=== PATIENT | male | born 1960 | race Caucasian/White ===

== ENCOUNTER 2016-05-03 04:50 | Inpatient (IN) | payer MEDICARE ==
[2016-05-03] VITALS (23 sets, daily range): BP systolic 106–205; BP diastolic 71–118; PULSE 72–129; RESP 17–20; TEMP 97.9–99.3; O2SAT 93–99
[~2016-05-03] VITALS: Ht 177.8 cm; Wt 90.1 kg
[~2016-05-03 04:50] MED LIST: ALPR.5 PO; DIGO0.12 PO; METO25TA6 PO; PROT40TA PO; TEMA30CA PO; VENL25TA PO
[2016-05-03] MEDS ORDERED: AMIO0.1T PO (05:12)
[2016-05-03] MEDS ORDERED: SODIUM CHLORIDE 0.9% FLUSH 5 ML FLUSH IVF PRN (05:15)
[2016-05-03] MEDS ORDERED: DILTIAZEM HCL 25 MG/5 ML VIAL IV ONE ×2 (05:15)
[2016-05-03] MEDS ORDERED: PROCHLORPERAZINE INJ 10 MG/2 ML VIAL IVS ONE (05:30)
--- NOTE | 2016-05-03 05:47 | RADRPT ---
EXAM DATE/TIME: 05/03/2016 05:26 [place] COMPARISON: CHEST SINGLE AP, May 21, 2015, 3:55. INDICATIONS : Shortness of breath. MEDICAL HISTORY : None. SURGICAL HISTORY : None. ENCOUNTER: Initial ACUITY: 1 day PAIN SCORE: 0/10 LOCATION: Bilateral chest FINDINGS: A single view of the chest demonstrates the lungs to be symmetrically aerated without evidence of mas s, infiltrate or effusion. The cardiomediastinal contours are unremarkable. Osseous structures are intact. CONCLUSION: No acute disease. No significant change has occurred. Gianni Carroll MD on May 03, 2016 at 5:45 Board Certified Radiologist. This report was verified electronically.
[2016-05-03 05:50] LABS: AUTOMATED NEUTROPHIL # 14.2 TH/MM3 (1.8-7.7); BASOPHIL % 0.3 % (0.0-2.0); HEMATOCRIT 52.6 % (39.0-51.0); HEMO FLAGS DIFF FINAL; LYMPH % 7.3 % (9.0-44.0); LYMPHOCYTE # 1.1 TH/MM3 (1.0-4.8); MEAN CELL VOLUME 90.3 FL (80.0-100.0); MEAN CORPUSCULAR HEMOGLOBIN 31.8 PG (27.0-34.0); MEAN CORPUSCULAR HGB CONC 35.3 % (32.0-36.0); MONO % 1.4 % (0.0-8.0); PLATELET COUNT 370 TH/MM3 (150-450); RED BLOOD COUNT 5.83 MIL/MM3 (4.50-5.90); RED CELL DISTRIBUTION WIDTH 12.9 % (11.6-17.2); WHITE BLOOD COUNT 15.6 TH/MM3 (4.0-11.0)
[2016-05-03 06:08] LABS: APTT (PATIENT) 25.4 SEC (24.3-30.1); PROTHROMBIN TIME - PATIENT 11.6 SEC (9.8-11.6)
[2016-05-03 06:16] LABS: ANION GAP 18 MEQ/L (5-15); BLOOD UREA NITROGEN 10 MG/DL (7-18); CHLORIDE 101 MEQ/L (98-107); GLOMERULAR FILTRATION RATE 73 ML/MIN (>89); MAGNESIUM 2.3 MG/DL (1.5-2.5); POTASSIUM 4.4 MEQ/L (3.5-5.1); SODIUM (NA) 137 MEQ/L (136-145)
[2016-05-03 06:19] LABS: CREATINE KINASE 107 U/L (39-308)
[2016-05-03] MEDS ORDERED: LORazepam 2 MG/ML VIAL IV PUSH ONE (06:30)
[2016-05-03 06:32] LABS: CKMB 0.9 NG/ML (0.5-3.6)
--- NOTE | 2016-05-03 07:29 | PD ---
HPI Chief Complaint: General Weakness Time Seen by Provider: 05:08 Travel History International Travel<30 days: No Contact w/Intl Traveler<30days: No Traveled to known affect area: No History of Present Illness HPI Patient's 55-year-old male who arrives to the ER following a couple days of weakness and decreased appetite. He's had nausea for a few days. On route to the ER vomited several times in the ambulance. He complains of some generalized chest pain which he thinks is due to the vomiting episodes. For the last couple days at night sweats. He also complains of anxiety. He has a known history of atrial fibrillation and takes digoxin with amiodarone. He does not take anticoagulation due to gastric polyps colonic polyps. EMS notes diaphoresis on scene as well as a heart rate of 120. Blood pressure was 160/ 90. The patient also reports EMS that recently changed some of his medications however on my exam is less forthright. PFSH Past Medical History Hx Anticoagulant Therapy: Yes Arthritis: Yes Atrial Fibrillation: Yes Anxiety: Yes Depression: Yes Cancer: No Cardiac Catheterization: Yes Cardiomyopathy: Yes Cardiovascular Problems: Yes (A-FIB) Congestive Heart Failure: Yes Coronary Artery Disease: Yes Diabetes: No Diminished Hearing: No Endocrine: No Gastrointestinal Disorders: Yes (RECENT GI BLEED) GERD: Yes Gout: Yes Genitourinary: No Hepatitis: No Hypertension: Yes Immune Disorder: No Medical other: Yes (GOUT, HAD 2 UNITS OF PLASMA 06/01) Musculoskeletal: Yes (ARTHRITIS, "GOUTY ARTHRITIS") Neurologic: No Psychiatric: Yes (ANXIETY, DEPRESSION) Reproductive: No Respiratory: No Immunizations Current: Yes Thyroid Disease: No Tetanus Vaccination: Unknown Influenza Vaccination: No Past Surgical History Abdominal Surgery: No Body Medical Devices: 6 SCREWS Cardiac Surgery: No Ear Surgery: No Endocrine Surgery: No Eye Surgery: No Genitourinary Surgery: No Gynecologic Surgery: No Joint Replacement: No Oral Surgery: Yes (2 WISDOM TEETH PULLED) Pacemaker: No Thoracic Surgery: No Social History Alcohol Use: Yes (rarly) Tobacco Use: No Substance Use: No Allergies-Medications (Allergen,Severity, Reaction): Coded Allergies: No Known Allergies (Verified , 01/04/16) Reported Meds & Prescriptions Reported Meds & Active Scripts Active Reported Amiodarone (Amiodarone HCl) 100 Mg Tab Unknown Dose PO DAILY Xanax (Alprazolam) 0.5 Mg Tab 0.5 Mg PO Q6H PRN Temazepam 30 Mg Cap 30 Mg PO HS PRN Metoprolol Succinate ER 24 HR (Metoprolol Succinate) 25 Mg Tab 25 Mg PO BID Digoxin 0.125 Mg Tab 0.125 Mg PO DAILY Effexor (Venlafaxine HCl) 25 Mg Tab 25 Mg PO Q12H Protonix (Pantoprazole Sodium) 40 Mg Tab 40 Mg PO DAILY Review of Systems Except as stated in HPI: all other systems reviewed are Neg General / Constitutional: No: Fever Physical Exam Narrative GENERAL: 55 yo M, WNWD, NAD SKIN: Warm and dry. HEAD: Atraumatic. Normocephalic. EYES: Pupils equal and round. No scleral icterus. No injection or drainage. ENT: No nasal bleeding or discharge. Mucous membranes pink and moist. NECK: Trachea midline. No JVD. CARDIOVASCULAR: Irregular. Tachycardia. RESPIRATORY: No accessory muscle use. Clear to auscultation. Breath sounds equal bilaterally. GASTROINTESTINAL: Abdomen soft, non-tender, nondistended. Hepatic and splenic margins not palpable. MUSCULOSKELETAL: Extremities without clubbing, cyanosis, or edema. No obvious deformities. NEUROLOGICAL: Awake and alert. No obvious cranial nerve deficits. Motor grossly within normal limits. Five out of 5 muscle strength in the arms and legs. Normal speech. PSYCHIATRIC: Appropriate mood and affect; insight and judgment normal. Data Data Last Documented VS Vital Signs Date Time Temp Pulse Resp B/P Pulse Ox O2 Delivery O2 Flow Rate FiO2 05/03/16 07:01 112 18 113/76 97 Room Air 05/03/16 04:59 98.5 VS reviewed Orders Complete Blood Count With Diff (05/03/16 05:08) Basic Metabolic Panel (Bmp) (05/03/16 05:08) B-Type Natriuretic Peptide (05/03/16 05:08) Act Partial Throm Time (Ptt) (05/03/16 05:08) Prothrombin Time / Inr (Pt) (05/03/16 05:08) Magnesium (Mg) (05/03/16 05:08) Ckmb (Isoenzyme) Profile (05/03/16 05:08) Troponin I (05/03/16 05:08) Blood Culture (05/03/16 05:08) Iv Access Insert/Monitor (05/03/16 05:08) Electrocardiogram (05/03/16 05:08) Ecg Monitoring (05/03/16 05:08) Oximetry (05/03/16 05:08) Oxygen Administration (05/03/16 05:08) Chest, Single Ap (05/03/16 05:08) Sodium Chloride 0.9% Flush (Ns Flush) (05/03/16 05:15) Diltiazem Inj (Cardizem Inj) (05/03/16 05:15) Diltiazem Inj (Cardizem Inj) (05/03/16 05:15) Prochlorperazine Inj (Compazine Inj) (05/03/16 05:30) Lorazepam Inj (Ativan Inj) (05/03/16 06:30) CKMB (05/03/16 05:15) CKMB% (05/03/16 05:15) Diltiazem Inj (Cardizem Inj) (05/03/16 07:30) Digoxin (05/03/16 07:33) Sodium Chlorid 0.9% 500 Ml Inj (Ns 500 M (05/03/16 07:45) Admit Order (Ed Use Only) (05/03/16 07:33) Labs Laboratory Tests Test 05/03/16 05:15 White Blood Count 15.6 TH/MM3 Red Blood Count 5.83 MIL/MM3 Hemoglobin 18.6 GM/DL Hematocrit 52.6 % Mean Corpuscular Volume 90.3 FL Mean Corpuscular Hemoglobin 31.8 PG Mean Corpuscular Hemoglobin 35.3 % Concent Red Cell Distribution Width 12.9 % Platelet Count 370 TH/MM3 Mean Platelet Volume 9.4 FL Neutrophils (%) (Auto) 91.0 % Lymphocytes (%) (Auto) 7.3 % Monocytes (%) (Auto) 1.4 % Eosinophils (%) (Auto) 0.0 % Basophils (%) (Auto) 0.3 % Neutrophils # (Auto) 14.2 TH/MM3 Lymphocytes # (Auto) 1.1 TH/MM3 Monocytes # (Auto) 0.2 TH/MM3 Eosinophils # (Auto) 0.0 TH/MM3 Basophils # (Auto) 0.0 TH/MM3 CBC Comment DIFF FINAL Differential Comment Prothrombin Time 11.6 SEC Prothromb Time International 1.0 RATIO Ratio Activated Partial 25.4 SEC Thromboplast Time Sodium Level 137 MEQ/L Potassium Level 4.4 MEQ/L Chloride Level 101 MEQ/L Carbon Dioxide Level 18.0 MEQ/L Anion Gap 18 MEQ/L Blood Urea Nitrogen 10 MG/DL Creatinine 1.06 MG/DL Estimat Glomerular Filtration 73 ML/MIN Rate Random Glucose 111 MG/DL Calcium Level 9.2 MG/DL Magnesium Level 2.3 MG/DL Total Creatine Kinase 107 U/L Creatine Kinase MB 0.9 NG/ML Troponin I LESS THAN 0.02 NG/ML B-Type Natriuretic Peptide 171 PG/ML MDM Medical Decision Making Medical Screen Exam Complete: Yes Emergency Medical Condition: Yes Differential Diagnosis NSTEMI, unstable angina, coronary vasospasm, PE, PTX, aortic dissection, pericarditis, myocarditis, endocarditis, PNA, esophageal disease, aneurysm, musculoskeletal etiologies, anxiety, cocaine/sympathomimetic abuse Narrative Course CBC & BMP Diagram 05/03/16 05:15 Neutrophilia at 91% BNP 171 Troponin less than 0.02 Anion gap 18 EKG reveals a heart rate of 126 with atrial fibrillation left axis deviation and nonspecific ST changes Last 24 hours Impressions Chest X-Ray 05/03/16 0508 Signed Impressions: Service Date/Time: Tuesday, May 03, 2016 05:26 - CONCLUSION: No acute disease. No significant change has occurred. Gianni Carroll MD Anion gap is of unclear etiology as is leukocytosis. No response with 20 mg IV diltiazem. Diltiazem drip to be initiated. 500 cc normal saline bolus. Case discussed with Dr Victoria. Diagnosis Primary Impression: Atrial fibrillation with RVR Additional Impression: High anion gap metabolic acidosis Admitting Information Admitting Physician Requests: Admit Hernandez Story MD May 03, 2016 07:29
[2016-05-03] MEDS ORDERED: SODIUM CHLORID 0.9% 500 ML INJ 500 ML IV ONE (07:45)
[2016-05-03] MEDS ORDERED: SODIUM CHLOR 0.9% 1000 ML INJ 1,000 ML IV SCH (08:35)
[2016-05-03] MEDS ORDERED: SODIUM CHLORIDE 0.9% FLUSH 5 ML FLUSH FLUSH PRN (08:45)
[2016-05-03] MEDS ORDERED: NALOXONE HCL 0.4 MG/ML AMP IV PRN (08:45)
[2016-05-03] MEDS ORDERED: ALPRAZolam 0.5 MG TAB PO PRN (08:45)
[2016-05-03] MEDS ORDERED: SENNOSIDES 8.6 MG TAB PO PRN (08:45)
[2016-05-03] MEDS ORDERED: ONDANSETRON HCL 4 MG/2 ML VIAL IVP PRN (08:45)
[2016-05-03] MEDS ORDERED: ACETAMINOPHEN 325 MG TAB PO PRN ×2 (08:45)
[2016-05-03] MEDS ORDERED: TEMAZEPAM 15 MG CAP PO PRN (08:45)
[2016-05-03] MEDS: DILTIAZEM INJ 125 MG in SODIUM CHLORIDE 0.9% INJ 100 ML IV SCH (08:57)
[2016-05-03] MEDS ORDERED: SODIUM CHLORIDE 0.9% FLUSH 5 ML FLUSH FLUSH SCH (09:00)
[2016-05-03] MEDS: DOCUSATE SODIUM 100 MG CAP PO SCH ×2 (09:00→21:00)
--- NOTE | 2016-05-03 09:25 | EKG ---
Date Performed: 05/03/2016 Time Performed: 03:00:08 PTAGE: 55 years EKG: Probable atrial flutter with rapid response. MARKED LEFT AXIS DEVIATION POSSIBLE INFERIOR M YOCARDIAL INFARCTION ABNORMAL ECG Compared to prior electrocardiogram,Rate has increased. PREVIOUS TRACING : 05/21/2015 15.56 DOCTOR: Jeremy Colby Interpretating Date/Time 05/03/2016 09:24:20
[2016-05-03 09:33] LABS: INDIRECT BILIRUBIN 0.5 MG/DL (0.0-0.8); TOTAL BILIRUBIN ADULT 0.6 MG/DL (0.2-1.0)
[2016-05-03] MEDS: VENLAFAXINE HCL 25 MG TAB PO SCH ×2 (09:46→21:12)
[2016-05-03] MEDS: METOPROLOL SUCCINATE 25 MG EXTENDED RELEASE TAB PO SCH ×2 (09:46→21:12)
[2016-05-03] MEDS: PANTOPRAZOLE SOD 40 MG DELAYED RELEASE TAB PO SCH (09:46)
--- NOTE | 2016-05-03 11:24 | HHI.HP ---
HPI Service [facility] Hospitalists Primary Care Physician No Primary Care Physician Admission Diagnosis AFib RVR, Anion Gap Acidosis, N/V, Weakness Diagnoses: Travel History International Travel<30 Days: No Contact w/Intl Traveler <30 Da: No Traveled to Known Affected Are: No History of Present Illness The patient is a 55-year-old male with a past medical history of atrial fibrillation and CHF who presented to the hospital with nausea and vomiting and weakness. The patient states that on he developed nausea and vomiting and has pretty much been dry heaving since then. He denies any associated abdominal pain or diarrhea. He does not recall what he ate on Thursday prior to the onset of his illness. He denies any recent travel. He has been experiencing drenching sweats at night. He endorses dizziness. He has had shortness of breath associated with his heaving fits. He has not been tolerating a diet but currently feels as if he can eat as he does feel better overall. He says sometimes he has a pain on his right side that is currently not present. He says he has been feeling weak over the past few days and has not been walking to steadily. He noticed that his right pupil is slightly bigger than his left pupil and he is not sure that has always been the case. He denies any new vision changes or weakness/ numbness in any of his extremities. He denies any seizure activity. He says he recently saw his psychiatrist who he follows with for anxiety. Review of Systems Except as stated in HPI: all other systems reviewed are Neg Past Family Social History Past Medical History Tomlinson's esophagus GIB Hypertension CHF Atrial fibrillation COPD Gout Skull fracture when a baby Anxiety Allergies: Coded Allergies: No Known Allergies (Verified , 01/04/16) Active Ordered Medications Current Medications Medications (Trade) Dose Ordered Sig/Ricardo Route Start Time Stop Time Status Last Admin IV Flush 2 ml 2 ml UNSCH PRN IVF 05/03/16 05:15 (Cardizem Inj/NS Inj) 125 ml @ 0 mls/hr TITRATE IV 05/03/16 07:30 05/03/16 08:57 (Xanax) 0.5 mg Q6H PRN PO 05/03/16 08:45 (Lanoxin) 0.125 mg DAILY PO 05/04/16 09:00 (Toprol Xl) 25 mg BID PO 05/03/16 09:00 05/03/16 09:46 (Protonix) 40 mg DAILY PO 05/03/16 09:00 05/03/16 09:46 (Restoril) 30 mg HS PRN PO 05/03/16 08:45 (Effexor) 25 mg Q12H PO 05/03/16 09:00 05/03/16 09:46 (Tylenol) 650 mg Q4H PRN PO 05/03/16 08:45 (Zofran Inj) 4 mg Q6H PRN IVP 05/03/16 08:45 (Colace) 100 mg Q12HR PO 05/03/16 09:00 (Senokot) 17.2 mg Q12H PRN PO 05/03/16 08:45 (Tylenol) 650 mg Q6H PRN PO 05/03/16 08:45 (Roxicodone) 10 mg Q4H PRN PO 05/03/16 08:45 (Roxicodone) 5 mg Q4H PRN PO 05/03/16 08:45 Naloxone HCl 0.4 mg 0.4 mg UNSCH PRN IV 05/03/16 08:45 (NS 1000 ml Inj) 1,000 ml @ 100 mls/hr Q10H IV 05/04/16 08:35 05/05/16 04:34 (Lovenox Inj) 40 mg Q24H SQ 05/03/16 11:30 UNV (Cordarone) 200 mg DAILY PO 05/03/16 11:30 Family History Mental illness Social History The patient does not smoke. He says he has rare alcohol intake. He denies illicit drug use. Physical Exam Vital Signs Vital Signs Date Time Temp Pulse Resp B/P Pulse Ox O2 Delivery O2 Flow Rate FiO2 05/03/16 09:26 113 18 130/86 98 Room Air 05/03/16 07:01 112 18 113/76 97 Room Air 05/03/16 06:59 113 18 113/79 96 Room Air 05/03/16 05:25 111 20 160/98 98 Room Air 05/03/16 04:59 98.5 129 18 167/94 98 Physical Exam GENERAL: This is a well-nourished, well-developed patient, in no apparent distress. SKIN: No rashes, ecchymoses or lesions. Cool and dry. HEAD: Atraumatic. Normocephalic. No temporal or scalp tenderness. EYES: Pupils round and reactive, right pupil slightly greater than the left. Extraocular motions intact. No scleral icterus. No injection or drainage. ENT: Nose without bleeding, purulent drainage or septal hematoma. Throat without erythema, tonsillar hypertrophy or exudate. Uvula midline. Airway patent. NECK: Trachea midline. No JVD or lymphadenopathy. Supple, nontender, no meningeal signs. CARDIOVASCULAR: Irregularly irregular rhythm without murmurs, gallops, or rubs. RESPIRATORY: Clear to auscultation. Breath sounds equal bilaterally. No wheezes , rales, or rhonchi. GASTROINTESTINAL: Abdomen soft, non-tender, nondistended. No hepato-splenomegaly , or palpable masses. No guarding. MUSCULOSKELETAL: Extremities without clubbing, cyanosis, or edema. No joint tenderness, effusion, or edema noted. NEUROLOGICAL: Awake and alert. Cranial nerves II through XII intact. Motor and sensory grossly within normal limits. Five out of 5 muscle strength in all muscle groups. Normal speech. PSYCH: Mood and affect appropriate. Laboratory Laboratory Tests Test 05/03/16 05/03/16 05/03/16 05:15 08:00 09:10 White Blood Count 15.6 Red Blood Count 5.83 Hemoglobin 18.6 Hematocrit 52.6 Mean Corpuscular Volume 90.3 Mean Corpuscular Hemoglobin 31.8 Mean Corpuscular Hemoglobin 35.3 Concent Red Cell Distribution Width 12.9 Platelet Count 370 Mean Platelet Volume 9.4 Neutrophils (%) (Auto) 91.0 Lymphocytes (%) (Auto) 7.3 Monocytes (%) (Auto) 1.4 Eosinophils (%) (Auto) 0.0 Basophils (%) (Auto) 0.3 Neutrophils # (Auto) 14.2 Lymphocytes # (Auto) 1.1 Monocytes # (Auto) 0.2 Eosinophils # (Auto) 0.0 Basophils # (Auto) 0.0 CBC Comment DIFF FINAL Differential Comment Prothrombin Time 11.6 Prothromb Time International 1.0 Ratio Activated Partial 25.4 Thromboplast Time Sodium Level 137 Potassium Level 4.4 Chloride Level 101 Carbon Dioxide Level 18.0 Anion Gap 18 Blood Urea Nitrogen 10 Creatinine 1.06 Estimat Glomerular Filtration 73 Rate Random Glucose 111 Calcium Level 9.2 Magnesium Level 2.3 Total Creatine Kinase 107 Creatine Kinase MB 0.9 Troponin I LESS THAN 0.02 LESS THAN 0.02 B-Type Natriuretic Peptide 171 Total Bilirubin 0.6 Direct Bilirubin 0.1 Indirect Bilirubin 0.5 Aspartate Amino Transf 26 (AST/SGOT) Alanine Aminotransferase 35 (ALT/SGPT) Alkaline Phosphatase 91 Total Protein 9.0 Albumin 4.3 Lipase 97 Digoxin Level 0.2 Lactic Acid Level 2.4 Date/Time Procedure Status Source Growth 05/03/16 05:25 Aerobic Blood Culture Received Blood Peripheral Pending 05/03/16 05:25 Anaerobic Blood Culture Received Blood Peripheral Pending Result Diagram: 05/03/16 0515 05/03/16 0515 Imaging Last Impressions Chest X-Ray 05/03/16 0508 Signed Impressions: Service Date/Time: Tuesday, May 03, 2016 05:26 - CONCLUSION: No acute disease. No significant change has occurred. Gianni Carroll MD Assessment and Plan Assessment and Plan Metabolic acidosis/ Nausea The patient has an anion gap secondary to lactic acidosis with a lactate level of 2.4. The patient has been having bouts of nausea and vomiting over the past few days and has not been eating or drinking much. The patient does appear hemoconcentrated. His white count is elevated however there is no evidence of infection. Chest x-ray was normal. His symptoms have improved. Likely a viral illness. - IV fluids. - Follow BMP and lactic acid level. - Antiemetics as needed. - Encourage by mouth intake. - Check a UA c/s. - blood cultures x 2. NGTD. - PT evaluation for weakness. Atrial fibrillation with RVR Chronic condition. He received IV diltiazem in the emergency department. Heart rate is now controlled. The patient was previously on Coumadin however he had a GI bleed last year and that was discontinued. The patient says he takes a full strength aspirin daily. - Continue home medications including amiodarone, digoxin and Toprol-XL. - Monitor on telemetry. - Continue aspirin and consider resuming full anticoagulation. Anxiety The patient follows with psychiatrist as an outpatient. - Continue Effexor, Xanax and temazepam. - Outpatient follow-up with psychiatry. PPx: Lovenox. Code Status Full. Discussed Condition With Dr. Story, pt, nurse. Physician Certification 2 Midnight Certification Type: Admission for Inpatient Services Order for Inpatient Services The services are ordered in accordance with Medicare regulations or non- Medicare payer requirements, as applicable. In the case of services not specified as inpatient-only, they are appropriately provided as inpatient services in accordance with the 2-midnight benchmark. Estimated LOS (days): 2 days is the estimated time the patient will need to remain in the hospital, assuming treatment plan goals are met and no additional complications. Post-Hospital Plan: Home Arron Victoria DO May 03, 2016 11:24
[2016-05-03] MEDS: SODIUM CHLOR 0.9% 1000 ML INJ 1,000 ML IV SCH ×2 (11:34→21:14)
[2016-05-03] MEDS: ENOXAPARIN SODIUM 40 MG/0.4 ML SYRINGE SQ SCH (11:37)
[2016-05-03] MEDS: AMIODARONE 200 MG TAB PO SCH (11:37)
[2016-05-03] MEDS: ASPIRIN 325 MG TAB PO SCH (12:49)
[2016-05-03 17:17] LABS: ANION GAP 10 MEQ/L (5-15); BICARBONATE 23.2 MEQ/L (21.0-32.0); BLOOD UREA NITROGEN 14 MG/DL (7-18); CHLORIDE 105 MEQ/L (98-107); GLOMERULAR FILTRATION RATE 62 ML/MIN (>89); POTASSIUM 4.1 MEQ/L (3.5-5.1); SODIUM (NA) 138 MEQ/L (136-145)
[2016-05-03 17:48] LABS: BLOOD, URINE NEG (NEG); COMMENT (UR) CULT NOT INDICATED; CULTURE IF INDICATED CULT NOT INDICATED; GLUCOSE,URINE NEG (NEG); HYALINE CAST, URINE 2 /lpf (RARE); KETONE, URINE 80 mg/dL (NEG); MUCUS URINE FEW /lpf (OCC); NITRITE,URINE NEG (NEG); PH, URINE 5.5 (5.0-8.5); URINE COLOR YELLOW (YELLW/STRAW)
[2016-05-04] VITALS (16 sets, daily range): BP systolic 127–148; BP diastolic 77–101; PULSE 62–96; RESP 17–18; TEMP 98.6–99.1; O2SAT 95–98
[2016-05-04] MEDS: DILTIAZEM INJ 125 MG in SODIUM CHLORIDE 0.9% INJ 100 ML IV SCH (02:36)
[2016-05-04 07:39] LABS: AUTOMATED NEUTROPHIL # 5.1 TH/MM3 (1.8-7.7); BASOPHIL % 0.5 % (0.0-2.0); EOSINOPHIL # 0.1 TH/MM3 (0-0.4); EOSINOPHIL % 0.9 % (0.0-4.0); HEMATOCRIT 43.5 % (39.0-51.0); HEMO FLAGS DIFF FINAL; LYMPH % 30.4 % (9.0-44.0); LYMPHOCYTE # 2.5 TH/MM3 (1.0-4.8); MEAN CELL VOLUME 91.6 FL (80.0-100.0); MEAN CORPUSCULAR HEMOGLOBIN 31.6 PG (27.0-34.0); MEAN CORPUSCULAR HGB CONC 34.5 % (32.0-36.0); MONO % 6.7 % (0.0-8.0); NEUT % 61.5 % (16.0-70.0); PLATELET COUNT 236 TH/MM3 (150-450); RED BLOOD COUNT 4.75 MIL/MM3 (4.50-5.90); RED CELL DISTRIBUTION WIDTH 13.2 % (11.6-17.2); WHITE BLOOD COUNT 8.3 TH/MM3 (4.0-11.0)
[2016-05-04 08:27] LABS: ALKALINE PHOSPHATASE 58 U/L (45-117); ALT (GPT) 23 U/L (12-78); ANION GAP 10 MEQ/L (5-15); AST (GOT) 18 U/L (15-37); BICARBONATE 20.7 MEQ/L (21.0-32.0); BLOOD UREA NITROGEN 13 MG/DL (7-18); CHLORIDE 109 MEQ/L (98-107); GLOMERULAR FILTRATION RATE 75 ML/MIN (>89); SODIUM (NA) 140 MEQ/L (136-145); TOTAL BILIRUBIN ADULT 1.2 MG/DL (0.2-1.0)
[2016-05-04] MEDS ORDERED: DIGOXIN 0.125 MG TAB PO SCH (09:00)
[2016-05-04] MEDS: DOCUSATE SODIUM 100 MG CAP PO SCH (09:00)
[2016-05-04] MEDS ORDERED: ASPI325T PO (09:11)
--- NOTE | 2016-05-04 09:12 | HHI.DCPOC ---
Discharge Care Plan Diagnosis: (1) High anion gap metabolic acidosis (2) Atrial fibrillation with RVR Your Health Problems Are: Anxiety Appetite Changes Goals to Promote Your Health * To prevent worsening of your condition and complications * To maintain your health at the optimal level Directions to Meet Your Goals Take your medications as prescribed Follow your dietary instruction Follow activity as directed Keep your appointments as scheduled Take your immunizations and boosters as scheduled If your symptoms worsen call your PCP, if no PCP go to Urgent Care Center or Emergency Room Smoking is Dangerous to Your Health. Avoid second hand smoke Call the 24-hour hour crisis hotline for domestic abuse at Arron Victoria DO May 04, 2016 09:12
--- NOTE | 2016-05-04 09:22 | HHI.PR ---
Subjective Remarks The pt was resting in bed comfortably and wanted to go home. He said he has not had nausea for 24 hours. He had no acute complaints. Discussed with nursing. Objective Vitals Vital Signs Date Time Temp Pulse Resp B/P Pulse Ox O2 Delivery O2 Flow Rate FiO2 05/04/16 08:15 95 21 05/04/16 07:00 99.1 73 18 130/77 96 05/04/16 07:00 69 05/04/16 06:37 77 05/04/16 06:30 127/81 05/04/16 05:10 62 05/04/16 04:12 62 05/04/16 03:44 99.1 79 17 148/101 98 05/04/16 03:00 74 05/04/16 02:22 65 05/04/16 01:09 70 05/04/16 00:52 72 05/03/16 23:00 98.3 73 18 119/71 99 05/03/16 23:00 72 05/03/16 22:19 93 21 05/03/16 22:00 72 05/03/16 21:00 76 05/03/16 20:00 76 05/03/16 19:15 99.3 73 18 106/74 97 05/03/16 19:00 78 05/03/16 18:03 82 05/03/16 17:00 75 05/03/16 16:00 84 05/03/16 15:00 77 05/03/16 15:00 99.0 84 17 128/85 96 05/03/16 14:05 73 05/03/16 13:00 86 05/03/16 12:00 87 05/03/16 11:30 98.5 92 17 131/83 98 05/03/16 11:00 99 05/03/16 10:43 114 05/03/16 10:30 98.5 97 17 138/112 97 05/03/16 09:26 113 18 130/86 98 Room Air I/O 05/03/16 05/03/16 05/03/16 05/04/16 05/04/16 05/04/16 07:00 15:00 23:00 07:00 15:00 23:00 Intake Total 810 ml 1240 ml Output Total 600 ml Balance 210 ml 1240 ml Intake Oral 240 ml 240 ml IV Total 570 ml 1000 ml Output Urine Total 600 ml # Voids 2 Result Diagram: 05/04/16 0635 05/04/16 0636 Imaging Last Impressions Chest X-Ray 05/03/16 0508 Signed Impressions: Service Date/Time: Tuesday, May 03, 2016 05:26 - CONCLUSION: No acute disease. No significant change has occurred. Gianni Carroll MD Objective Remarks GENERAL: This is a well-nourished, well-developed patient, in no apparent distress. SKIN: No rashes, ecchymoses or lesions. Cool and dry. HEAD: Atraumatic. Normocephalic. No temporal or scalp tenderness. EYES: Pupils round and reactive, right pupil slightly greater than the left. Extraocular motions intact. No scleral icterus. No injection or drainage. ENT: Nose without bleeding, purulent drainage or septal hematoma. Throat without erythema, tonsillar hypertrophy or exudate. Uvula midline. Airway patent. NECK: Trachea midline. No JVD or lymphadenopathy. Supple, nontender, no meningeal signs. CARDIOVASCULAR: Irregularly irregular rhythm without murmurs, gallops, or rubs. RESPIRATORY: Clear to auscultation. Breath sounds equal bilaterally. No wheezes , rales, or rhonchi. GASTROINTESTINAL: Abdomen soft, non-tender, nondistended. No hepato-splenomegaly , or palpable masses. No guarding. MUSCULOSKELETAL: Extremities without clubbing, cyanosis, or edema. No joint tenderness, effusion, or edema noted. NEUROLOGICAL: Awake and alert. Cranial nerves II through XII intact. Motor and sensory grossly within normal limits. Five out of 5 muscle strength in all muscle groups. Normal speech. PSYCH: Mood and affect appropriate. Medications and IVs Current Medications Medications (Trade) Dose Ordered Sig/Ricardo Route Start Time Stop Time Status Last Admin (NS Flush) 2 ml UNSCH PRN IVF 05/03/16 05:15 (Xanax) 0.5 mg Q6H PRN PO 05/03/16 08:45 (Lanoxin) 0.125 mg DAILY PO 05/04/16 09:00 (Toprol Xl) 25 mg BID PO 05/03/16 09:00 05/03/16 21:12 (Protonix) 40 mg DAILY PO 05/03/16 09:00 05/03/16 09:46 (Restoril) 30 mg HS PRN PO 05/03/16 08:45 (Effexor) 25 mg Q12H PO 05/03/16 09:00 05/03/16 21:12 (Tylenol) 650 mg Q4H PRN PO 05/03/16 08:45 (Zofran Inj) 4 mg Q6H PRN IVP 05/03/16 08:45 (Colace) 100 mg Q12HR PO 05/03/16 09:00 (Senokot) 17.2 mg Q12H PRN PO 05/03/16 08:45 (Tylenol) 650 mg Q6H PRN PO 05/03/16 08:45 (Roxicodone) 10 mg Q4H PRN PO 05/03/16 08:45 (Roxicodone) 5 mg Q4H PRN PO 05/03/16 08:45 Naloxone HCl 0.4 mg 0.4 mg UNSCH PRN IV 05/03/16 08:45 (NS 1000 ml Inj) 1,000 ml @ 100 mls/hr Q10H IV 05/04/16 08:35 05/05/16 04:34 05/03/16 21:14 (Lovenox Inj) 40 mg Q24H SQ 05/03/16 12:00 05/03/16 11:37 (Cordarone) 200 mg DAILY PO 05/03/16 11:30 05/03/16 11:37 (Aspirin) 325 mg DAILY PO 05/03/16 12:00 05/03/16 12:49 A/P Assessment and Plan Metabolic acidosis/ Nausea The patient had an anion gap secondary to lactic acidosis with a lactate level of 2.4. The patient has been having bouts of nausea and vomiting over the past few days and has not been eating or drinking much. The patient did appear hemoconcentrated. His white count was elevated however there was no evidence of infection. Chest x-ray and UA were normal. His symptoms have resolved. Likely a viral illness. - IV fluids. - Follow BMP and lactic acid level. Anion gap and lactic acidosis have resolved. - Antiemetics as needed. - Encourage by mouth intake. - blood cultures x 2. NGTD. Atrial fibrillation with RVR Chronic condition. He received IV diltiazem in the emergency department. Digoxin level was low. Heart rate is now controlled on a Cardizem gtt. The patient was previously on Coumadin however he had a GI bleed last year and that was discontinued. The patient says he takes a full strength aspirin daily. - Continue home medications including amiodarone, digoxin and Toprol-XL. D/c Cardizem gtt. - Monitor on telemetry. - Continue aspirin and consider resuming full anticoagulation. 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 Anxiety The patient follows with psychiatrist as an outpatient. - Continue Effexor, Xanax and temazepam. - Outpatient follow-up with psychiatry. PPx: Lovenox. Discharge Planning Discharge later today if heart rate stable off of Cardizem gtt. Arron Victoria DO May 04, 2016 09:22
[2016-05-04] MEDS: METOPROLOL SUCCINATE 25 MG EXTENDED RELEASE TAB PO SCH (09:35)
[2016-05-04] MEDS: AMIODARONE 200 MG TAB PO SCH (09:36)
[2016-05-04] MEDS: ASPIRIN 325 MG TAB PO SCH (09:36)
[2016-05-04] MEDS: PANTOPRAZOLE SOD 40 MG DELAYED RELEASE TAB PO SCH (09:36)
[2016-05-04] MEDS: VENLAFAXINE HCL 25 MG TAB PO SCH (09:37)
[2016-05-04] MEDS: ENOXAPARIN SODIUM 40 MG/0.4 ML SYRINGE SQ SCH (12:00)
== END 2016-05-04 13:07 | disposition home or self-care (01) | DRG 866 ==
LOC: NEPC 04:50 → NEDA 07:35 → HCIN 10:23
PROVIDERS: ADMIT Hospitalist; ATTEND Hospitalist
DX: B34.9 Viral infection, unspecified (principal); E87.2 Acidosis; I42.9 Cardiomyopathy, unspecified; I50.9 Heart failure, unspecified; K22.70 Barrett's esophagus without dysplasia; I48.91 Unspecified atrial fibrillation; F41.9 Anxiety disorder, unspecified; F32.9 Major depressive disorder, single episode, unspecified; M1A.9XX0 Chronic gout, unspecified, without tophus (tophi); I25.10 Atherosclerotic heart disease of native coronary artery without angina pectoris; K21.9 Gastro-esophageal reflux disease without esophagitis; I10 Essential (primary) hypertension; Z86.010 Personal history of colon polyps; J44.9 Chronic obstructive pulmonary disease, unspecified
CPT/HCPCS: 71010; 80048; 80053; 80076; 80162; 81001; 82550; 82552; 83605; 83690; 83735; 83880; 84484; 85025; 85610; 85730; 87040; 93005; 96374; 96375; J0780; J1650; J2060; J7030; J7040